=== PATIENT | male | born 1960 | race Hispanic/Latino ===

== ENCOUNTER 2018-05-05 19:35 | Emergency (ER) | payer BC, SELFPAY ==
[2018-05-05] MEDS ORDERED: Cephalexin 500 MG CAP ONE (20:18)
[2018-05-05] MEDS ORDERED: Sulfameth/Trimethoprim DS 800-160mg TAB ONE (20:18)
== END 2018-05-05 20:25 | disposition home or self-care (01) ==
LOC: BURERS 19:35
DX: L03.221 Cellulitis of neck (principal); E10.9 Type 1 diabetes mellitus without complications; E78.5 Hyperlipidemia, unspecified; I10 Essential (primary) hypertension; Z79.899 Other long term (current) drug therapy; Z79.84 Long term (current) use of oral hypoglycemic drugs
CPT/HCPCS: 99282